=== PATIENT | female | born 1965 | race Hispanic/Latino ===

== ENCOUNTER 2019-08-31 08:41 | Day surgery (SDC) | payer MEDICAID ==
[~2019-08-31] VITALS: Ht 167.6 cm; Wt 113.4 kg
[~2019-08-31 08:41] MED LIST: SODIUM CHLORIDE 0.9% 1000ML 1,000 ML IV ONE
[2019-08-31 09:09] VITALS: BP 131/63
[2019-08-31 09:53] LABS: POTASSIUM 4.8 mmol/L (3.5-5.1)
[2019-08-31 09:58] LABS: ALBUMIN 3.5 g/dL (3.5-5.0); BILIRUBIN,TOTAL 1.3 mg/dL (0.2-1.0); TOTAL PROTEIN, SERUM 7.8 g/dL (6.0-8.3)
[2019-08-31] MEDS ORDERED: PROPOFOL 10 MG/ML 20ML VIAL IV ONE (10:24)
[2019-08-31] MEDS ORDERED: MELA5CAP PO (10:34)
[2019-08-31] MEDS ORDERED: FURO40TA5 PO (10:34)
[2019-08-31] MEDS ORDERED: DICL2100G TP (10:34)
[2019-08-31] MEDS ORDERED: PANT40TA25 PO (10:34)
[2019-08-31] MEDS ORDERED: SERT100T12 PO (10:34)
[2019-08-31] MEDS ORDERED: ZOLP10TA6 PO (10:34)
[2019-08-31] MEDS ORDERED: METH85CR TP (10:34)
[2019-08-31] MEDS ORDERED: LACT10SO PO (10:34)
[2019-08-31] MEDS ORDERED: ISON300T17 PO (10:34)
[2019-08-31] MEDS ORDERED: RIFA550T PO (10:34)
[2019-08-31] MEDS ORDERED: GABA-531 PO (10:34)
[2019-08-31] MEDS ORDERED: SPIR100T5 PO (10:34)
[2019-08-31 10:36] VITALS: BP 122/64
[2019-08-31 10:41] VITALS: BP 128/68
[2019-08-31 10:46] VITALS: BP 132/64
[2019-08-31 10:51] VITALS: BP 134/64
== END 2019-08-31 11:15 | disposition home or self-care (01) ==
LOC: ENDO 08:41 → DAH 08:41 → ENDO 11:15
PROVIDERS: ATTEND Internal Medicine
DX: K74.60 Unspecified cirrhosis of liver (principal); K31.89 Other diseases of stomach and duodenum; K21.9 Gastro-esophageal reflux disease without esophagitis; F41.9 Anxiety disorder, unspecified; F32.9 Major depressive disorder, single episode, unspecified; J45.909 Unspecified asthma, uncomplicated; F17.210 Nicotine dependence, cigarettes, uncomplicated; Z79.899 Other long term (current) drug therapy; Z90.49 Acquired absence of other specified parts of digestive tract; Z98.890 Other specified postprocedural states; Z72.89 Other problems related to lifestyle; Z82.49 Family history of ischemic heart disease and other diseases of the circulatory system
CPT/HCPCS: 36415; 43239; 80053; 82140; 83605; A4215; A4221; A4222; A4223; A4606; A4615; A4663; J2704; J7030

== ENCOUNTER → 2020-03-13 | Outpatient (CLI) | payer MEDICAID ==
[~2020-03-13] MED LIST changes: +GADODIAMIDE 10 MMOL/20 ML VIAL IV ONE; -SODIUM CHLORIDE 0.9% 1000ML 1,000 ML IV ONE
== END | disposition home or self-care (01) ==
LOC: RAH 08:08
PROVIDERS: ATTEND Internal Medicine Gastroenterology
DX: K74.69 Other cirrhosis of liver (principal); R16.0 Hepatomegaly, not elsewhere classified; Z90.49 Acquired absence of other specified parts of digestive tract
CPT/HCPCS: 74183; A9579